=== PATIENT | female | born 1975 | race Caucasian/White ===

== ENCOUNTER 2024-08-24 08:05 | Emergency (ER) | payer OTHER, SELFPAY ==
[2024-08-24] VITALS (48 sets, daily range): BP systolic 86–171; BP diastolic 49–68; PULSE 80–129; RESP 1–52; TEMP 36.6–36.9; O2SAT 97–100; BMI 39.2
--- NOTE | 2024-08-24 08:05 | ED_ITS ---
HPI - General Adult General Chief complaint: Chest Pain Stated complaint: Chest Pain Time Seen by Provider: 08/24/24 08:05 History of Present Illness HPI narrative: 48-year-old woman with a history hypertension, hypothyroidism, no known cardiac disease was at work today while sitting at her desk developed severe 10/10 crushing central chest pain radiating through to her back. She did take a baby aspirin. I am called that she is brought in by medics for further evaluation. She notes that the single nitroglycerin given sublingually prior to arrival brought her pain down from a 10 to a 6 she is in significant distress. She is somewhat pale not diaphoretic able to cooperate with the exam, she is not hypoxic, she is hypertensive. Reports she has been in her usual state of health until this acute onset of pain Related Data Home Medications Medication Instructions Recorded Confirmed MULTIVITAMIN (Multivitamin 0 PO Q DAY ##0 01/22/08 -) [CALCIUM] Q DAY ##0 01/22/08 Previous Rx's Medication Instructions Recorded morphine 20 mg/5 mL (4 mg/mL) oral 4 - 8 mg (1 - 2 mL) PO Q2H PRN 08/24/24 solution Pain, agitation #120 mL morphine 20 mg/5 mL (4 mg/mL) oral 4 - 8 mg (1 - 2 mL) PO Q4H PRN 08/24/24 solution pain, agitation #100 mL Review of Systems Review of Systems Narrative: Pertinent positive and negative findings as per HPI Patient History Medical History (Updated 08/24/24 @ 11:34 by Yane Cantu MD) Hypothyroidism (acquired) Hypertension Social History Smoking Status: Never smoker Exam Narrative Exam Narrative: Blood pressure right arm 150/67, left arm 171/68 Initial Vital Signs Initial Vital Signs: Vital Signs Pulse Rate 117 H 08/24/24 08:07 Pulse Oximetry 99 08/24/24 08:07 General: Acute distress with crushing chest pain trying to be cooperative. She has not diaphoretic, mildly hypertensive, tachycardic HEENT: Moist mucous membranes, normal sclera with reactive pupils, Neck: No JVD, supple Respiratory: Lungs are clear to auscultation, no wheezing no rales no rhonchi. Full and symmetrical air movement Cardiac: Tachycardic but otherwise Regular rate and rhythm no murmurs no bruits Abdomen: Soft, nontender, good bowel tones, no flank pain Skin: Warm and dry, no rashes Neurologic: Grossly neurologically intact with no obvious asymmetries or abnormalities Extremities: No trauma, well perfused, no pain or swelling to the lower extremities Psych: Cooperative, appropriate insight and affect Course Orders Ordered: ED Orders 08/24/24 08:00 Complete Blood Count AUTO DIFF Stat Comprehensive Metabolic Panel Stat Lipase Stat Magnesium Stat NT-proBNP (BNP-Adult 18+) Stat PTT Partial Thromboplastin Damian Stat Prothrombin Time INR Stat Troponin & CK Cardiac Panel Stat 08/24/24 08:09 XR chest 1V Stat EKG-12 Lead Stat 08/24/24 08:11 CT angio chest abdomen pelvis Stat 08/24/24 08:20 EKG-12 Lead Stat 08/24/24 09:57 Troponin I Stat Morphine Sulfate (Morphine 2 Mg/Ml Inj) 2 mg IV Q15MIN AMY Nitroglycerin (Nitroglycerin 0.4 Mg Sl Tab) 0.4 mg SL [id number] PRN PRN Reason: Chest Pain Last Admin: 08/24/24 08:14 Dose: 0.4 mg Documented By: ERNESTO Discontinued Medications Aspirin (Aspirin 81 Mg Chew Tab) 324 mg PO NOW ONE Stop: 08/24/24 08:09 Last Admin: 08/24/24 08:14 Dose: Not Given Documented By: ERNESTO Sodium Chloride (Normal Saline 0.9%) 1,000 mls @ 1,000 mls/hr IV BOLUS ONE Stop: 08/24/24 09:19 Last Infusion: 08/24/24 09:59 Dose: Infused Documented By: Admin: 08/24/24 08:20 Dose: 1,000 mls/hr Documented By: TURNER Morphine Sulfate (Morphine 4 Mg/Ml Inj) 4 mg IV NOW ONE Stop: 08/24/24 08:18 Last Admin: 08/24/24 08:23 Dose: 2 mg Documented By: TURNER Vital Signs Vital signs: Vital Signs - 8 hr 08/24/24 08:07 08/24/24 08:09 08/24/24 08:10 Temperature 98 F Pulse Rate 117 H 126 H Respiratory Rate 25 H Blood Pressure 150/67 H 150/67 H Pulse Oximetry 99 99 Oxygen Delivery Method Room Air 08/24/24 08:10 08/24/24 08:14 08/24/24 08:14 Temperature Pulse Rate 127 H 122 H 129 H Respiratory Rate 31 H 28 H Blood Pressure 171/68 H Pulse Oximetry 98 97 Oxygen Delivery Method 08/24/24 08:14 08/24/24 08:16 08/24/24 08:16 Temperature Pulse Rate 128 H Respiratory Rate 16 Blood Pressure 171/68 H 160/64 H Pulse Oximetry 97 Oxygen Delivery Method 08/24/24 08:35 08/24/24 08:43 08/24/24 08:43 Temperature Pulse Rate 112 H 89 Respiratory Rate 52 H 38 H Blood Pressure 91/55 L Pulse Oximetry 99 99 Oxygen Delivery Method 08/24/24 08:45 08/24/24 08:45 08/24/24 08:50 Temperature Pulse Rate 86 Respiratory Rate 38 H Blood Pressure 92/49 L 86/51 L Pulse Oximetry 99 Oxygen Delivery Method 08/24/24 08:50 08/24/24 08:52 08/24/24 08:52 Temperature Pulse Rate 84 83 Respiratory Rate 31 H 10 L Blood Pressure 94/53 L Pulse Oximetry 100 100 Oxygen Delivery Method 08/24/24 08:55 08/24/24 08:55 08/24/24 09:00 Temperature Pulse Rate 83 81 Respiratory Rate 8 L 1 L Blood Pressure 94/51 L Pulse Oximetry 100 100 Oxygen Delivery Method 08/24/24 09:00 08/24/24 09:05 08/24/24 09:05 Temperature Pulse Rate 85 Respiratory Rate 31 H Blood Pressure 97/53 L 99/57 L Pulse Oximetry 100 Oxygen Delivery Method 08/24/24 09:10 08/24/24 09:10 08/24/24 09:15 Temperature Pulse Rate 84 Respiratory Rate 16 Blood Pressure 96/52 L 93/54 L Pulse Oximetry 100 Oxygen Delivery Method 08/24/24 09:15 08/24/24 09:20 08/24/24 09:20 Temperature Pulse Rate 84 84 Respiratory Rate 14 12 Blood Pressure 96/52 L Pulse Oximetry 99 97 Oxygen Delivery Method 08/24/24 09:25 08/24/24 09:25 08/24/24 09:30 Temperature Pulse Rate 84 Respiratory Rate 37 H Blood Pressure 95/51 L 93/53 L Pulse Oximetry 99 Oxygen Delivery Method 08/24/24 09:30 08/24/24 09:35 08/24/24 09:35 Temperature Pulse Rate 85 83 Respiratory Rate 10 L 16 Blood Pressure 93/50 L Pulse Oximetry 98 99 Oxygen Delivery Method 08/24/24 09:40 08/24/24 09:40 08/24/24 09:45 Temperature Pulse Rate 84 Respiratory Rate 23 Blood Pressure 98/55 L 105/59 L Pulse Oximetry 98 Oxygen Delivery Method 08/24/24 09:45 08/24/24 09:50 08/24/24 09:50 Temperature Pulse Rate 83 81 Respiratory Rate 17 13 Blood Pressure 101/57 L Pulse Oximetry 99 97 Oxygen Delivery Method Medical Decision Making Lab Data 08/24/24 08:00 08/24/24 08:00 Labs: Lab Results 08/24/24 08/24/24 Range/Units 08:00 09:57 WBC 4.2 L (4.5-11.0) X10^3/uL RBC 3.36 L (4.0-5.2) X10^6/uL Hgb 11.5 L (12.0-16.0) g/dL Hct 34.1 L (36-46) % MCV 101.4 H (80-100) fL MCH 34.1 H (26-34) PG MCHC 33.6 (30-36) % RDW 12.3 (11.6-14.8) % Plt Count 283 (150-400) X10^3/uL Neut % (Auto) 59.6 (50-75) % Lymph % (Auto) 27.8 (25-40) % [place] % (Auto) 10.3 (3-14) % Eos % (Auto) 1.3 L (2-4) % Baso % (Auto) 1.0 (0-2) % Neut # (Auto) 2500 (4849-6654) /uL Lymph # (Auto) 1200 (9863-8532) /uL [place] # (Auto) 400 (0-900) /uL Eos # (Auto) 100 (0-450) /uL Baso # (Auto) 0 (0-100) /uL PT 11.4 (9.4-12.5) SECONDS INR 1.0 (0.9-1.3) APTT 35 (25.1-36.5) SECONDS Sodium 135 L (137-145) mmol/L Potassium 3.6 (3.4-5.1) mmol/L Chloride 105 (98-107) mmol/L Carbon Dioxide 25 (22-32) mmol/L BUN 26 H (7-17) mg/dL Creatinine 1.28 H (0.52-1.04) mg/dL Estimated GFR 52 L (>60) mL/min BUN/Creatinine Ratio 20.3 (6-22) Glucose 126 H (70-100) mg/dL Calcium 9.5 (8.4-10.2) mg/dL Magnesium 1.6 (1.6-2.3) mg/dL Total Bilirubin 0.6 (0.2-1.3) mg/dL AST 57 H (14-36) IU/L ALT 29 (<35) IU/L Alkaline Phosphatase 76 (38-126) U/L Total Creatine Kinase 59 (30-135) U/L Troponin I < 0.012 < 0.012 (0.01-0.034) ng/mL NT-Pro-B Natriuret Pep 74 (<125) pg/mL Total Protein 7.1 (6.3-8.2) g/dL Albumin 4.2 (3.5-5.0) g/dL Globulin 2.9 (1.7-4.1) g/dL Albumin/Globulin Ratio 1.4 (1.0-2.8) Lipase 125 (23-300) U/L Urine Dip Bedside Urine Glucose Negative Bedside Urine Bilirubin - Negative Bedside Urine Ketone - Negative Urine Specific [place] 1.015 Bedside Urine Occult Blood - Negative Bedside Urine pH 6.0 Bedside Urine Protein +/- 15 Bedside Urine Urobilinogen - Negative Bedside Urine Nitrite - Negative Bedside Urine Leukocytes - Negative Esterase Point of care testing: Urine Dip Bedside Urine Glucose Negative Bedside Urine Bilirubin - Negative Bedside Urine Ketone - Negative Urine Specific [place] 1.015 Bedside Urine Occult Blood - Negative Bedside Urine pH 6.0 Bedside Urine Protein +/- 15 Bedside Urine Urobilinogen - Negative Bedside Urine Nitrite - Negative Bedside Urine Leukocytes - Negative Esterase [facility] Narrative Medical decision making narrative: CC: Unprovoked 05/20 crushing chest pain Complicating co-morbidities: Obesity, hypertension, hypothyroidism Data collected from: patient Medical records reviewed: No medical records available Differential considered: Dissection, acute coronary syndrome, pneumothorax, pulmonary embolism, severe reflux Exam documented above, pertinent findings include: Acute distress with continued crushing chest pain , tachycardic, symmetrical lung sounds, no lower extremity edema remainder of exam is otherwise benign Lab Test results independently reviewed as above. Pertinent findings: CBC shows white count slightly low at 4.2, mild anemia 11.5 and 34.1. Platelets are appropriate at 283 Chemistries show mild renal insufficiency with creatinine at 1.28 and GFR 52. AST minimally elevated at 57. Potassium sodium appropriate Initial troponin is undetectable ProBNP is undetectable Lipase is unremarkable Independently reviewed EKG: Initial EKG shows sinus tachycardia at 129. Nonspecific STT wave changes without STEMI criteria met Repeat EKG heart rate is come down to 91, continue sinus rhythm and no acute ischemic changes noted Imaging studies independently reviewed: Chest x-ray done on arrival does not show obvious infiltrates or pneumothorax CT angiogram of the chest abdomen and pelvis is done with concern for dissection. No evidence of dissection, PE, aneurysm or acute pathology appreciated in lung marshall or abdomen in general Consultations: Treatments: Aspirin prior to arrival, sublingual nitroglycerin, morphine for pain control Re-evaluations: 48-year-old woman with crushing chest pain obvious distress, slight decrease in pain with initial nitro, no change to pain with 2nd nitro. 4 mg of morphine given. Repeat EKGs showing no STEMI criteria. She is given 4 mg of morphine. She is taken to the CT scanner for aortic dissection chest abdomen and pelvis protocol. 930am patient has been are updated on all negative findings today. She states that the pain still feels heavy but now seems to be more in her neck and upper back. Nitroglycerin did decrease her pressure significantly she was given a L of fluid. Morphine has been helpful that obviously has not completely relieve the pain. Heart rate is much better controlled at this time. Discussion: 48-year-old woman comes in with acute onset crushing chest pain. Workup is entirely benign. At this time blood pressure and heart rate are back down to her baseline. She still feels like she has almost a weighted vest over her shoulders. -Acute coronary syndrome/STEMI is felt to be less likely given negative troponins and EKGs. Heart score is 3 for description of pain and her age this puts her at low risk for 30 day major adverse coronary event -CT angiogram of the chest abdomen and pelvis rules out multiple other pathologies including dissection, pulmonary embolism, pneumothorax, acute pneumonia, pericardial effusion, pleural effusion. Abdominal study does not suggest acute cholelithiasis/cholecystitis, pancreatic abnormalities, free air. Abdomen is re-evaluated and is entirely nontender. No evidence of thoracic spine abnormalities All of these findings reviewed with the patient and her . Given remarkably normal workup with a rather impressive presentation with shared decision-making opted for discharge home. I have asked them to follow up with her primary care physician and clearly reviewed reasons to return to the emergency department. At this point she is safe for discharge Critical Care Time Critical Care Time Critical Care Time: Yes Total Critical Care Time: 33 Attestation: Critical care time is separate from other billable procedures. There is a high probability of a significant, sudden or life-threatening deterioration that requires my full and direct attention, intervention and personal management. This critical care time includes consultation with family and other consulting doctors, review of records, and interpretation of data from labs, EKGs and imaging as well as managements of crushing chest pain Discharge Plan Departure Patient Disposition: Home Clinical Impression: Atypical chest pain Instructions: DI for Atypical Chest Pain Activity Restrictions/Additional Instructions: Thank you for coming in today With a severe crushing pain that you had on arrival and still the sensation that there is a heavy best over your shoulders, I still did not find any life- threatening abnormalities Specifically, your risk for a heart attack based on your presentation and numbers is quite low and the 2 blood tests in 2 EKGs were entirely normal The CT scan that we did looked at your chest including your entire aorta, all the lungs and everything through the center portion of your chest around your esophagus are all nice and normal. The scan also included an abdominal portion that did not show significant abnormalities in liver spleen stomach or evidence of significant pathology in your abdomen that might have been causing your chest pain You are not having any wheezing and I do not think this is a viral syndrome At this time, I believe we have ruled out all of the life-threatening abnormalities and going home is safe. If you have new symptoms worsening findings or any additional concerns returning to the emergency department would be absolutely appropriate I would recommend schedule follow up with your primary care physician. Incidentally appreciated with your blood work today was a slightly low white blood cell count, red blood cell count with normal platelets. Prescriptions: New morphine 20 mg/5 mL (4 mg/mL) solution 4 - 8 mg PO Q4H PRN (Reason: pain, agitation) Qty: 100 0RF Rx Instructions: titrate to pain, agitation, NOT to breathing morphine 20 mg/5 mL (4 mg/mL) solution 4 - 8 mg PO Q2H PRN (Reason: Pain, agitation) Qty: 120 0RF Rx Instructions: Titrate to pain and agitation not to breathing No Action MULTIVITAMIN (Multivitamin -) 0 PO Q DAY Qty: 0 [CALCIUM] Q DAY Qty: 0 Referrals: *Temp,ED* [Primary Care Provider] - Stand Alone Forms: Patient Portal/API/Survey
--- NOTE | 2024-08-24 08:09 | DI.RAD.S_ITS ---
PROCEDURE: XR CHEST 1V INDICATIONS: chest pain TECHNIQUE: One view of the chest was acquired. COMPARISON: None. FINDINGS: Surgical changes and devices: None. Lungs and pleura: Lungs are clear. No pleural effusions or pneumothorax. Mediastinum: Mediastinal contours appear normal. Heart size is normal. Bones and chest wall: No suspicious bony lesions. Overlying soft tissues appear unremarkable. IMPRESSION: No acute cardiopulmonary pathology. Dictated by: Harvey Van M.D. on 08/24/2024 at 8:27 Approved by: Harvey Van M.D. on 08/24/2024 at 8:27
--- NOTE | 2024-08-24 08:11 | DI.CT.S_ITS ---
PROCEDURE: CT ANGIO CHEST ABDOMEN PELVIS INDICATIONS: crushing chest pain radiating to back TECHNIQUE: Precontrast 5 mm thick sections acquired from the lung apices to the iliac crests. After the administration of intravenous contrast, 2.5 mm thick sections again acquired from the lung apices to the iliac crests. Maximum intensity projection (MIP) oblique sagittal and coronal reformats were then acquired. For radiation dose reduction, the following was used: automated exposure control. COMPARISON: None. FINDINGS: Image quality: Diagnostic. AORTA: No aortic aneurysm. No acute aortic syndrome. CHEST: Lower Neck: No enlarged lymph nodes. Thyroid: Enlarged, heterogeneous thyroid; this is been previously worked up. Axillae: No enlarged lymph nodes. Chest Wall: Unremarkable. Lungs and Pleura: No pneumothorax or pleural effusions. Scattered pulmonary micro nodules period Heart: Heart size is normal. No pericardial effusion. No calcified coronary arteries. Thoracic Vessels: Pulmonary arteries demonstrate normal size. Mediastinum and [place]: No enlarged lymph nodes. Esophagus: No wall thickening. No hiatal hernia. ABDOMEN: Liver: No solid mass. Gallbladder: Cholelithiasis without wall thickening or adjacent fat stranding to suggest acute cholecystitis. Biliary ducts: No biliary dilation. Pancreas: No ductal dilation. Spleen: Size is within normal limits. Adrenal Glands: No adrenal nodules. Kidneys and Ureters: No hydronephrosis. No solid mass. No complex renal cystic lesion which requires follow up. Stomach and Bowel: Normal colonic caliber, without significant wall thickening. Peritoneum: No abnormal intraperitoneal fluid. No free air. Ventral Wall: No hernia. Abdominal Nodes: No retroperitoneal or mesenteric adenopathy by size criteria. Vessels: Inferior vena cava is normal in size. PELVIS: Pelvic Organs: Unremarkable. Bladder: Unremarkable. Pelvic Nodes: No enlarged lymph nodes. Miscellaneous: No inguinal hernias are seen. Bones: Unremarkable. IMPRESSION: No acute aortic syndrome. No aneurysm. No calcified coronary artery calcifications. Cholelithiasis without wall thickening or adjacent fat stranding to suggest acute cholecystitis. Dictated by: Twan Gipson M.D. on 08/24/2024 at 8:40 Approved by: Twan Gipson M.D. on 08/24/2024 at 8:43
--- NOTE | 2024-08-24 08:12 | EKG_ITS ---
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
[2024-08-24] MEDS: NITROGLYCERIN 0.4 MG SL TAB SL (08:14)
[2024-08-24 08:15] LABS: Add Manual Diff / Slide Review NO; Basophils Absolute Auto 0 /uL (0-100); Eosinophils Absolute Auto 100 /uL (0-450); Eosinophils Percent Auto 1.3 % (2-4); Hematocrit 34.1 % (36-46); Hemoglobin 11.5 g/dL (12.0-16.0); Lymphocytes Absolute Auto 1200 /uL (1100-4500); Lymphocytes Percent Auto 27.8 % (25-40); Mean Corpuscular HGB Conc 33.6 % (30-36); Mean Corpuscular Hemoglobin 34.1 PG (26-34); Mean Corpuscular Volume 101.4 fL (80-100); Monocytes Absolute Auto 400 /uL (0-900); Monocytes Percent Auto 10.3 % (3-14); Neutrophils Absolute Auto 2500 /uL (1500-7000); Neutrophils Percent Auto 59.6 % (50-75); Platelet Count 283 X10^3/uL (150-400); Red Blood Cell Count 3.36 X10^6/uL (4.0-5.2); Red Cell Distribution Width 12.3 % (11.6-14.8); White Blood Cell Count 4.2 X10^3/uL (4.5-11.0)
[2024-08-24] MEDS: SODIUM CHLORIDE 0.9% 1,000 ML 1000 ML IV (08:20)
--- NOTE | 2024-08-24 08:20 | EKG_ITS ---
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
[2024-08-24] MEDS: MORPHINE 4 MG/ML INJ IV (08:23)
[2024-08-24 08:27] LABS: Prothrombin Time 11.4 SECONDS (9.4-12.5)
[2024-08-24 08:30] LABS: PTT Partial Thromboplastin Tim 35 SECONDS (25.1-36.5)
[2024-08-24 08:35] LABS: Alanine Aminotransferase 29 IU/L (<35); Albumin 4.2 g/dL (3.5-5.0); Albumin Globulin Ratio 1.4 (1.0-2.8); Alkaline Phosphatase 76 U/L (38-126); Aspartate Aminotransferase 57 IU/L (14-36); BUN Creatinine Ratio 20.3 (6-22); Bilirubin Total 0.6 mg/dL (0.2-1.3); Blood Urea Nitrogen 26 mg/dL (7-17); Calcium 9.5 mg/dL (8.4-10.2); Carbon Dioxide 25 mmol/L (22-32); Chloride 105 mmol/L (98-107); Creatine Kinase 59 U/L (30-135); Estimated Glomerular Filt Rate 52 mL/min (>60); Globulin 2.9 g/dL (1.7-4.1); Glucose 126 mg/dL (70-100); HEMOLYSIS < 15 (0-50); Lipase 125 U/L (23-300); Magnesium 1.6 mg/dL (1.6-2.3); Potassium 3.6 mmol/L (3.4-5.1); Sodium 135 mmol/L (137-145); Total Protein 7.1 g/dL (6.3-8.2)
--- NOTE | 2024-08-24 08:46 | PC.NURSE ---
Crushing chest pain radiating to upper back. No history of heart issues. Tachycardia. States shortness of breath w/ pain.
[2024-08-24 08:47] LABS: NT-proBNP (BNP-Adult 18+) 74 pg/mL (<125); Troponin I < 0.012 ng/mL (0.01-0.034)
[2024-08-24 10:29] LABS: Troponin I < 0.012 ng/mL (0.01-0.034)
== END 2024-08-24 12:06 | disposition home or self-care (01) ==
PROVIDERS: Emergency Provider Emergency Medicine
DX: R07.89 Other chest pain (principal); I10 Essential (primary) hypertension; M54.2 Cervicalgia; M54.6 Pain in thoracic spine; R00.0 Tachycardia, unspecified; R06.00 Dyspnea, unspecified; E66.9 Obesity, unspecified; Z68.39 Body mass index [BMI] 39.0-39.9, adult
CPT/HCPCS: 36415; 71045; 71275; 74174; 80053; 81003; 82550; 83690; 83735; 83880; 84484; 85025; 85610; 85730; 93005; 93010; 96361; 96374; 99284; 99291; J2270; Q9967